=== PATIENT | female | born 1960 | race Caucasian/White ===

== ENCOUNTER 2017-03-12 17:13 | Emergency (ER) | payer MEDICAID ==
[~2017-03-12] VITALS: Ht 154.9 cm; Wt 103.0 kg
[~2017-03-12 17:13] MED LIST: ATEN-51 PO; HYD25 PO; HYDR-3498 PO; METH500T PO; TRAM50TA2 PO
[2017-03-12 17:15] VITALS: Ht 154.9 cm; Wt 103.0 kg
[2017-03-12] MEDS ORDERED: KETOROLAC 60 MG INJ IM STA (19:15)
[2017-03-12] MEDS ORDERED: TRAM50TA2 PO (20:08)
[2017-03-12] MEDS ORDERED: IBUP800T25 PO (20:08)
--- NOTE | 2017-03-12 20:19 | ERD ---
ER Documentation Chief Complaint Date/Time DATE: 03/12/17 TIME: 20:16 Chief Complaint chronic rt knee pain , worse after fall on friday HPI This 56-year-old female complains of a history of chronic right knee pain. She has had several falls recently as a result of her knee pain. She was told she needs an MRI but was having difficulty due to insurance reasons and financial reasons as her spouse recently . She denies any fevers, vomiting, shortness of breath or chest pain. She denies any calf swelling or shortness of breath. She is able to ambulate with discomfort. ROS All systems reviewed and are negative except as per history of present illness. Medications Home Meds Active Scripts Tramadol HCl (Tramadol HCl) 50 Mg Tablet, 50 MG PO Q4 Y for PAIN, #20 TAB Prov:BIA GREEN MD 03/12/17 Ibuprofen* (Motrin*) 800 Mg Tab, 800 MG PO Q6, #30 TAB Prov:BIA GREEN MD 03/12/17 Hydrocodone Bit-Acetaminophen* (Castine*) 5-325 Mg Tab, 1 TAB PO Q6 Y for PAIN, # 14 TAB Prov:ALEJANDRO ORTIZ PA-C 02/24/16 Tramadol HCl (Tramadol HCl) 50 Mg Tablet, 50 MG PO Q6, #14 TAB Prov:JOEY HOLM MD 02/01/16 Hydrochlorothiazide* (Hydrochlorothiazide*) 25 Mg Tab, 25 MG PO DAILY, #30 TAB Prov:LOBITO CHANCE PA-C 07/18/15 Hydrocodone Bit-Acetaminophen* (Castine*) 5-325 Mg Tab, 1 TAB PO Q6 Y for PAIN, # 20 TAB Prov:LOBITO CHANCE PA-C 07/18/15 Reported Medications Atenolol* (Atenolol*) 25 Mg Tablet, 25 MG PO DAILY, TAB 08/03/14 Tramadol HCl (Tramadol HCl) 50 Mg Tab, 50 MG PO Q6H Y for PAIN, TAB 08/03/14 Methocarbamol* (Robaxin*) 500 Mg Tab, 500 MG PO Q6, TAB 08/03/14 Allergies Allergies: Coded Allergies: naproxen (Verified Allergy, Severe, 08/03/14) PMhx/Soc History of Surgery: Yes () Hx Neurological Disorder: No Hx Respiratory Disorders: No Hx Cardiac Disorders: Yes (Hypertension) Hx Psychiatric Problems: No Hx Miscellaneous Medical Probl: Yes (Chronic back & shoulder pain) Hx Alcohol Use: No Hx Substance Use: No Hx Tobacco Use: No Smoking Status: Never smoker Physical Exam Vitals Vital Signs Date Time Temp Pulse Resp B/P Pulse Ox O2 Delivery O2 Flow Rate FiO2 03/12/17 17:15 98.1 85 18 133/95 99 Physical Exam Const: [] Alert, [id number]. Head: Atraumatic Eyes: Normal Conjunctiva ENT: Normal External Ears, Nose and Mouth. Neck: Full range of motion..~ No meningismus. Resp: Clear to auscultation bilaterally Cardio: Regular rate and rhythm, no murmurs Abd: Soft, non tender, non distended. Normal bowel sounds Skin: No petechiae or rashes Back: No midline or flank tenderness Ext: No cyanosis, or edema. Generalized right knee tenderness and mild swelling without erythema, warmth, deformities. There is no calf swelling or Homans sign and there is no evidence of tendon or neurologic deficits. Neur: Awake and alert Psych: Normal Mood and Affect Results 24 hrs Current Medications Medications (Trade) Dose Ordered Sig/Adilia Route PRN Reason Start Time Stop Time Status Last Admin Dose Admin Ketorolac Tromethamine (Toradol) 60 mg ONCE STAT IM 03/12/17 19:15 03/12/17 19:16 DC 03/12/17 19:41 Procedures/MDM X-ray right knee 3V Interpreted by me: Bones: No fracture Joints: No dislocation Foreign body: None. Impression-no acute findings on right knee x-ray Patient was placed in a right knee immobilizer and given crutches with crutch training. Patient presents with a history of acute on chronic right knee pain without evidence of fracture, dislocation, septic arthritis, DVT, ischemia or deficits. She will be treated here with Toradol 60 mg IM at home with tramadol and ibuprofen. Patient was referred to local orthopedic resources and instructed to return for fevers, redness, new worsening symptoms or with primary doctor and orthopedist as directed. Social work was requested by patient request for help with medical resources and insurance utilization. Departure Diagnosis: Primary Impression: Knee injury Encounter type: initial encounter Laterality: right Qualified Code: S89.91XA - Knee injury, right, initial encounter Condition: Stable Patient Instructions: Knee Pain, Uncertain Cause Referrals: PADMINI JIANG MD [facility] Usted se barton hecho un examen mdico de control que le indica que no est en calvin condicin que requiera tratamiento urgente en el Departamento de Emergencia. Un estudio ms profundo y el tratamiento de maya condicin pueden esperar sin ningn riesgo hasta que usted sea atendida/o en el consultorio de maya mdico o calvin cl radha. Es responsabilidad suya arreglar calvin judy para el seguimiento del amaya. MANEJO DE CONDICIONES NO URGENTES EN EL FUTURO 1) Si usted tiene un mdico de atencin primaria: Usted debera llamar a maya mdico de atencin primaria antes de venir al departamento de emergencia. Despus de las horas de consultorio, maya doctor o maya asociado/a est disponible por telfono. El mdico o enfermero de leo en el servicio telefnico puede asesorarle por genesis medio para atender el problema, o amaya contrario se puede programar calvin judy. 2) Si usted no tiene un mdico de atencin primaria: Llame al mdico o clnica de referencia que aparece abajo august las horas de consultorio para hacer calvin judy para que le vean. CLINICAS: [facility] [phone] [facility] [phone] [facility] [phone] [address] [facility] [address] [facility] [phone] [address] [facility] [phone] [address] [facility] [phone] [facility] () Usted se barton hecho un examen mdico de control que le indica que no est en calvin condicin que requiera tratamiento urgente en el Departamento de Emergencia. Un estudio ms profundo y el tratamiento de maya condicin pueden esperar sin ningn riesgo hasta que usted sea atendida/o en el consultorio de maya mdico o calvin cl radha. Es responsabilidad suya arreglar calvin judy para el seguimiento del amaya. MANEJO DE CONDICIONES NO URGENTES EN EL FUTURO 1) Si usted tiene un mdico de atencin primaria: Usted debera llamar a maya mdico de atencin primaria antes de venir al departamento de emergencia. Despus de las horas de consultorio, maya doctor o maya asociado/a est disponible por telfono. El mdico o enfermero de leo en el servicio telefnico puede asesorarle por genesis medio para atender el problema, o amaya contrario se puede programar calvin judy. 2) Si usted no tiene un mdico de atencin primaria: Llame al mdico o condado institucions de referencia que aparece abajo august las horas de consultorio para hacer calvin judy para que le vean. SI USTED NO PUEDE PAGAR PARA GEOVANI UN MEDICO puede ir a: [facility] [address] [place] [address] [facility] [address] [place] [address] [facility] [address] [place] [address] [facility] [facility] [address] [place], [place] [id number] Additional Instructions: x ray normal. Va al maya doctor/ specialista para mas evaluacon en el proximo semana. posiblemente necesita autorizado de maya doctor primario para specialista. Regresa para fiebre, o mas o nueva simptomas. BIA GREEN MD March 12, 2017 20:18
--- NOTE | 2017-03-12 20:28 | RADRPT ---
PROCEDURE: XR Knee. CLINICAL INDICATION: Knee pain TECHNIQUE: Three views of the right knee are available for review. COMPARISON: None available FINDINGS: There is mild to moderate narrowing of the medial femorotibial compartment with marginal osteophyte formation. Small marginal osteophytes are noted at the patellofemoral and lateral femorotibial wanda rtments as well. Minimal subchondral lucencies are noted at the patella. No acute osseous abnormali ty is seen. No evidence for joint effusion. IMPRESSION: 1. 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 2. No acute osseous abnormality. RPTAT: HH. .Christoph Daly MD, MD Date Time Electronically viewed and signed by .Christoph Daly MD, on 03/12/2017 20:28 .d/
== END 2017-03-12 21:17 | disposition home or self-care (01) ==
LOC: FTE 17:13
DX: S89.91XA Unspecified injury of right lower leg, initial encounter (principal); I10 Essential (primary) hypertension; W18.39XA Other fall on same level, initial encounter; Y92.9 Unspecified place or not applicable
CPT/HCPCS: 29505; 73562; 96372; J1885; Z7502